=== PATIENT | female | born 2000 | race Caucasian/White ===

== ENCOUNTER 2021-07-04 12:51 | Emergency (ER) | payer OTHER, SELFPAY ==
[2021-07-04 23:59] LABS: SARS-CoV-2 PCR by NAA Not Detected (NotDetected)
== END 2021-07-04 13:44 | disposition home or self-care (01) ==
LOC: BURERS 12:51
DX: R05 Cough (principal); Z20.822 Contact with and (suspected) exposure to COVID-19
CPT/HCPCS: 99283; U0003; U0005

== ENCOUNTER 2022-08-17 15:00 | Emergency (ER) | payer SELFPAY | END 2022-08-17 15:22 | disposition home or self-care (01) | LOC: BURERS 15:00 | DX: B35.4 Tinea corporis (principal) | CPT/HCPCS: 99282 ==